=== PATIENT | male | born 1970 | race Caucasian/White ===

== ENCOUNTER 2022-01-27 06:03 | Inpatient (IN) | payer MEDICARE ==
[~2022-01-27] VITALS: Ht 177.8 cm; Wt 180.1 kg
[2022-01-27 06:11] LABS: pH Blood Venous 7.05 (7.34-7.37)
[2022-01-27 06:13] LABS: PCO2 Venous > 105 mmHg (38-42)
[2022-01-27 06:14] LABS: Base Excess Venous 5.9 mmol/L; Bicarbonate Venous 23.2 mmol/L (24.0-30.0); PO2 Venous 48 mmHg (38-42)
[2022-01-27 06:24] LABS: BASOPHILS ABSOLUTE AUTO 0.05 K/mm3 (0.00-0.23); BASOPHILS PERCENT AUTO 0 % (0-2); EOSINOPHILS ABSOLUTE AUTO 0.02 K/mm3 (0.00-0.68); EOSINOPHILS PERCENT AUTO 0 % (0-6); Hemoglobin 18.5 g/dL (13.5-17.5); IMMATURE GRAN ABSOLUTE AUTO 0.13 K/mm3 (0.00-0.10); IMMATURE GRAN PERCENT AUTO 1 % (0-1); LYMPHOCYTES ABSOLUTE AUTO 0.62 K/mm3 (0.84-5.20); LYMPHOCYTES PERCENT AUTO 4 % (21-46); MONOCYTES ABSOLUTE AUTO 0.47 K/mm3 (0.16-1.47); MONOCYTES PERCENT AUTO 3 % (4-13); Mean Corpuscular HGB 28.5 pg (26.0-34.0); Mean Corpuscular HGB Conc 30.7 g/dL (31.5-36.5); Mean Corpuscular Volume 93 fL (80-100); Mean Platelet Volume 9.9 fL (9.1-12.4); NEUTROPHILS ABSOLUTE AUTO 13.34 K/mm3 (1.96-9.15); NEUTROPHILS PERCENT AUTO 91 % (41-73); Platelet Count 385 K/mm3 (150-400); RDW Coefficient Variation 13.9 % (11.7-14.2); RDW Standard Deviation 47.3 fL (35.1-46.3); Red Blood Cell Count 6.48 M/mm3 (4.30-5.90); White Blood Cell Count 14.63 K/mm3 (4.00-11.30)
[2022-01-27 06:27] LABS: Hematocrit 60.3 % (37.0-53.0)
[2022-01-27 06:55] LABS: PCO2 Arterial > 105 mmHg (35-45); PO2 Arterial 358 mmHg (80-100); pH Blood Arterial 7.09 (7.35-7.45)
[2022-01-27 07:00] LABS: Magnesium, Blood 2.5 mg/dL (1.6-2.4)
[2022-01-27 07:12] LABS: Alanine Aminotransfer (ALT/SGP 42 U/L (12-78); Albumin, Blood 2.5 g/dL (3.4-5.0); Albumin/Globulin Ratio 0.4 (0.8-1.8); Alk Phos 143 U/L (50-136); Anion Gap 1 mmol/L (6-16); Aspartate Aminotrans (AST/SGOT 63 U/L (12-37); Bilirubin, Total 0.3 mg/dL (0.1-1.0); Blood Urea Nitrogen 22 mg/dL (8-24); Bun/Creatinine Ratio 21.4 (12.0-20.0); CO2, Blood 35 mmol/L (21-32); Chloride, Blood 98 mmol/L (98-108); Creatinine, Blood 1.03 mg/dL (0.60-1.20); Globulin, Blood 6.7 g/dL (2.2-4.0); Glomerular Filtration Rate >60 (60-); Glucose, Blood 414 mg/dL (70-99); Potassium, Blood 6.8 mmol/L (3.5-5.5); Sodium, Blood 134 mmol/L (136-145); Total Protein, Blood 9.2 g/dL (6.4-8.2)
[2022-01-27 08:22] LABS: Influenza B, PCR NEGATIVE (NEGATIVE); Resp Syncytial Virus, PCR NEGATIVE (NEGATIVE); SARS-Cov-2 (COVID-19) PCR, MMC NEGATIVE (NEGATIVE)
[2022-01-27 08:23] LABS: Influenza A, PCR POSITIVE (NEGATIVE)
[2022-01-27] MEDS ORDERED: OSEL75CA PO (08:50)
[2022-01-27] MEDS ORDERED: AZIT250 PO (08:51)
[2022-01-27] MEDS ORDERED: ALLO100 PO (08:51)
[2022-01-27] MEDS ORDERED: PRED20 PO (08:51)
[2022-01-27 09:49] LABS: International Normalized Ratio 2.43; Prothrombin Time Results 24.1 Sec (9.7-11.5)
[2022-01-27 10:06] LABS: Digoxin (Lanoxin) 0.41 ug/mL (0.80-2.00)
[2022-01-27 10:48] LABS: Source, Urine Foley catheter
[2022-01-27 10:52] LABS: Appearance, Urine Turbid (Clear); Bilirubin, Urine Neg (Neg); Blood, Urine 4+ (Neg); Color, Urine Yellow (P-Yellow); Glucose Qualitative, Urine 4+ (Neg); Ketones, Urine Neg (Neg); Leukocyte Esterase, Urine Neg (Neg); Nitrite, Urine Neg (Neg); Protein, Urine 4+ (Neg); Specific Gravity, Urine 1.025 (1.003-1.022); Urobilinogen, Urine NORM (Normal)
[2022-01-27 11:16] LABS: Amorphous Mod (0-Heavy); Bacteria Mod /hpf; Squamous Epithelial Cells Rare /hpf (Few)
[2022-01-27 11:17] LABS: Renal Epithelial Mod /hpf (0-Rare)
--- NOTE | 2022-01-27 12:05 | NUR ---
ASSUMPTION OF CARE RECEIVED REPORT FROM ED, PATIENT ARRIVED TO UNIT AT 0945 ON GURNEY WITH 5 UPSETTING MACHINE OPERATOR TO BED. PATIENT INTUBATED WITH RT ADJUSTING VENT SETTINGS. OG CLAMPED. SEDATED ON PROPOFOL. LEVOPHED AND AMIO INFUSING. HEART RATE ELEVATED IN AFIB RATE ABOVE 140 UPON ARRIVAL. B/P STABLE WITH MAPS ABOVE 65, WILL BEGIN TITRATING LEVO DOWN. DR. VILLA CONSULTED, PLACED CENTRAL LINE IN RIJ PREVIOUSLY CHARTED. MEDICATIONS ADMINISTERED ORDERED. WILL REVIEW CHART AND TREAT PRESCRIBED.
[2022-01-27 12:58] LABS: Base Excess Venous 1.5 mmol/L; Bicarbonate Venous 22.8 mmol/L (24.0-30.0); pH Blood Venous 7.14 (7.34-7.37)
[2022-01-27] MEDS ORDERED: COLCHICINE0.6 MG PO (13:04)
[2022-01-27] MEDS ORDERED: LANOXIN PO (13:05)
[2022-01-27] MEDS ORDERED: FLUT1DIS8 INH (13:06)
[2022-01-27] MEDS ORDERED: FURO40 PO (13:06)
[2022-01-27] MEDS ORDERED: GLIM2 PO (13:07)
[2022-01-27] MEDS ORDERED: INSULANI SC (13:08)
[2022-01-27] MEDS ORDERED: MELO7.5 PO (13:08)
[2022-01-27] MEDS ORDERED: METO100 PO (13:08)
[2022-01-27] MEDS ORDERED: OLME20 PO (13:09)
[2022-01-27] MEDS ORDERED: OZEMPIC0.25 MG/0. SC (13:10)
[2022-01-27] MEDS ORDERED: PRAV20 PO (13:11)
[2022-01-27] MEDS ORDERED: POTCHL20ER PO (13:11)
[2022-01-27] MEDS ORDERED: PANT40 PO (13:11)
[2022-01-27] MEDS ORDERED: VICTOZA 3-0.6 MG/0.2 SC (13:13)
[2022-01-27] MEDS ORDERED: WARF7.5 PO (13:13)
[2022-01-27 13:19] LABS: Bun/Creatinine Ratio 16.7 (12.0-20.0); Calcium, Blood 8.2 mg/dL (8.5-10.1); Creatinine, Blood 1.8 mg/dL (0.60-1.20); Potassium, Blood 4.7 mmol/L (3.5-5.5)
--- NOTE | 2022-01-27 13:35 | NUR ---
UPDATE REVIEWED ALL LABS WITH DR. VILLA. INFUSING SECOND LITER NS BOLUS PER ELEVATED LA. REPORTED ABG RESULTS WHICH ARE IMPROVED WITH NO CHANGES AT THIS TIME. GLUCOSE REPORTED AND RECEIVED ORDERS FOR AN INSULIN DRIP. WILL INITIATE ONCE RECEIVED FROM PHARMACY.
--- NOTE | 2022-01-27 14:53 | NUR ---
FAMILY SPOKE TO PATIENT'S SISTER JOSSELIN HANKS WHO IS CURRENTLY IN [place]. UPDATE GIVEN REGARDING PATIENT'S CONDITION. RECEIVED CONTACT INFORMATION FOR JOSSELIN HANKS AND BROTHER TYSON. JOSSELIN HANSK SHARED THAT PATIENT LIVES WITH HIS MOTHER WHO IS [employer] WITH BLEACH TESTER. WILL UPDATE FAMILY NEEDED. NOTIFIED DR. VILLA OF FAMILY CONTACTS.
[2022-01-27 15:48] LABS: Glucose, Blood 582 mg/dL (70-99)
--- NOTE | 2022-01-27 18:32 | NUR ---
SHIFT SUMMARY PATIENT ADMITTED PREVIOUSLY CHARTED. REMAINED INTUBATED WITH CURRENT VENT SETTINGS 20/450/8/60% WITH 02 SATS 92%. SEDATED ON PROPOFOL OF 35MCG/KG. PATIENT AWAKENS WITH PHYSICAL STIMULI, CONTINUOUSLY COUGHS AGAINST VENT WHEN AWAKE. LEVOPHED STOPPED, B/P CURRENTLY STABLE WITH MAPS ABOVE 65. AMIO INFUSING WITH HEART RATE 110-120'S. IV FLUID BOLUSES GIVEN ORDERED BY DR. VILLA, MAINTENANCE FLUIDS NOW INFUSING AT 150ML/HR. CENTRAL LINE WAS PLACED IN [facility] BY DR. VILLA, CONFIRMED BY CXR AND VERIFIED TO USE. OG REMAINS CLAMPED. ECHO PERFORMED, LABS COLLECTED AND RESULTED, SPUTUM AND URINE CULTURE PENDING. FAMILY UPDATED PER PATIENT'S STATUS. WILL CONTINUE TO MONITOR AND REPORT TO ONCOMING RN.
[2022-01-27 20:06] LABS: PCO2 Venous 73.4 mmHg (38-42); PO2 Venous 53.4 mmHg (38-42); pH Blood Venous 7.22 (7.34-7.37)
[2022-01-27 20:35] LABS: Bun/Creatinine Ratio 16.1 (12.0-20.0); Calcium, Blood 7.5 mg/dL (8.5-10.1); Creatinine, Blood 2.17 mg/dL (0.60-1.20); Potassium, Blood 4.8 mmol/L (3.5-5.5)
--- NOTE | 2022-01-27 22:42 | NUR ---
SHIFT ASSESSMENT ASSUMED CARE OF PT @ 1900. PT INTUBATED AND SEDATED. PROPOFOL GTT CURRENTLY @ 35MCG/KG. VENT SETTINGS-AC: 20/450/60/8 c O2 SATS >92%. PT ADEQUATELY SEDATED, WILL COUGH VIGOROUSLY WITH MOVEMENT OR STIMULI, SCANT SECRETIONS WITH SUCTIONING. OGT CLAMPED. A-FIB ON THE MONITOR. AMIODARONE GTT INFUSING, HR 120-140'S. MAP > 65, LEVOPHED REMAINS ON SB. TEMP PROBE VILLANUEVA DRAINING CYDNEY URINE c SEDIMENT. PT AFEBRILE. SKIN OVERALL INTACT, SMALL REDDENED AREA FROM DEFIB PADS. BL WRIST RESTRAINTS IN PLACE. WILL CONTINUE TO MONITOR CLOSELY.
[2022-01-28 03:53] LABS: BASOPHILS ABSOLUTE AUTO 0.02 K/mm3 (0.00-0.23); BASOPHILS PERCENT AUTO 0 % (0-2); EOSINOPHILS PERCENT AUTO 0 % (0-6); Hematocrit 44.4 % (37.0-53.0); Hemoglobin 13.6 g/dL (13.5-17.5); IMMATURE GRAN ABSOLUTE AUTO 0.07 K/mm3 (0.00-0.10); IMMATURE GRAN PERCENT AUTO 1 % (0-1); LYMPHOCYTES ABSOLUTE AUTO 0.34 K/mm3 (0.84-5.20); LYMPHOCYTES PERCENT AUTO 2 % (21-46); MONOCYTES ABSOLUTE AUTO 0.37 K/mm3 (0.16-1.47); MONOCYTES PERCENT AUTO 3 % (4-13); Mean Corpuscular HGB 28.5 pg (26.0-34.0); Mean Corpuscular HGB Conc 30.6 g/dL (31.5-36.5); Mean Corpuscular Volume 93 fL (80-100); Mean Platelet Volume 9.3 fL (9.1-12.4); NEUTROPHILS PERCENT AUTO 95 % (41-73); Platelet Count 208 K/mm3 (150-400); RDW Standard Deviation 47.8 fL (35.1-46.3); Red Blood Cell Count 4.77 M/mm3 (4.30-5.90)
[2022-01-28 04:13] LABS: International Normalized Ratio 3.24; Prothrombin Time Results 31.5 Sec (9.7-11.5)
[2022-01-28 04:16] LABS: Albumin, Blood 1.7 g/dL (3.4-5.0); Bilirubin, Total 0.3 mg/dL (0.1-1.0); Bun/Creatinine Ratio 13.7 (12.0-20.0); Calcium, Blood 7.3 mg/dL (8.5-10.1); Creatinine, Blood 2.62 mg/dL (0.60-1.20); Magnesium, Blood 2.4 mg/dL (1.6-2.4); Phosphorus, Blood 3.4 mg/dL (2.5-4.9); Potassium, Blood 4.6 mmol/L (3.5-5.5)
[2022-01-28 04:34] LABS: Albumin/Globulin Ratio 0.4 (0.8-1.8); Globulin, Blood 4.1 g/dL (2.2-4.0)
[2022-01-28 04:36] LABS: Total Protein, Blood 5.8 g/dL (6.4-8.2)
--- NOTE | 2022-01-28 06:29 | NUR ---
SHIFT SUMMARY PT REMAINS INTUBATED AND SEDATED. AT 0500 SBT INITIATED AND PROPOFOL PLACED ON SB. VENT SETTINGS- SPONT-60/8, PT TOLERATING. O2 SATS REMAIN >95%. VSS. PT TRACKING THIS NURSE, TJ, FOLLOWING COMMANDS. PT BECOMING MILDLY ANXIOUS WITH SEDATION OFF, PROPOFOL BACK ON @ 10MCG WHICH SEEMS TO BE HELPING PT REMAIN CALM. KAMRAN SOFT WRIST RESTRAINTS REMAIN IN PLACE TO PROTECT ETT. INSULIN GTT NOW @ 8U/HR. AMIODARONE INFUSION NEAR COMPLETE. A-FIB ON THE MONITOR IN THE 120-130'S. OGT CLAMPED. NO BM. WILL CONTINUE TO MONITOR CLOSELY.
--- NOTE | 2022-01-28 09:30 | NUR ---
UPDATE: VENT SETTINGS CHANGE. PT W/ PROGRESSINGLY LOW TVs, 200s-300s. DR RODRIGUEZ @ BEDSIDE. VENT CHANGED FROM SPONT TO AC/VC 12/450, 8/60%. AMIO INF COMPLETE. HR AFIB 120s-150s. DR RODRIGUEZ AWARE. PLAN TO DC AMIO & TRANSITION TO PO.
--- NOTE | 2022-01-28 10:00 | NUR ---
CAREGIVER FOR PT's MOTHER CALLED. EXPLAINS THAT SHE IS THE LIVE-IN CAREGIVER FOR THE PT's MOTHER BUT HAS ALSO BEEN THE UNOFFICIAL CAREGIVER FOR THE PT. SHE EXPLAINS THE PT RECEIVES DISABILITY SUPPORT D/T A SIGNIFICANT DEVELOPMENTAL DELAY. SHE IS UNSURE OF THE EXACT Dx, BUT THE PT "DOES NOT UNDERSTAND WHAT SUGAR IS" & HAS BEHAVIORAL PROBLEMS, HE IS UNABLE TO REGULATE ANY EMOTIONS & CAN BECOME VERY HARD TO REDIRECT. HE DRINKS A 12pack OR MORE OF SODA EVERY DAY & DOES NOT UNDERSTAND HIS DIABETES OR TAKE HIS MEDS. SHE IS CONCERNED ABOUT HIM COMING HOME BECAUSE HE LAYS ON A MATTRESS THAT IS HEAVILY SOILED W/ FECES & URINE; THOUGH HE IS CONTINENT, HE WILL LAY THERE & SOIL HIMSELF. HIS NEEDS HAVE INCREASED OVER THE PAST FEW YEARS & SHE IS UNABLE TO CARE FOR BOTH THE MOTHER AND THE PT.
--- NOTE | 2022-01-28 18:00 | NUR ---
SHIFT SUMMARY: PT REMAINS INTUBATED & SEDATED. VENT: AC/VC 12/450, 8/55%. PROPOFOL 45mcg/kg/min. PT ABLE TO FOLLOW SIMPLE COMMANDS W/ SEDATION VACATION. HR REMAINS 115-160s, AFIB. PT STARTED ON PO CARDIZEM TODAY & TF STARTED W/ VHP @ 20ml/hr W/ A GOAL OF 70ml/hr. NO S/Sx OF INTOLERANCE T/O THE DAY. 650ml DARK, CLOUDY UOP. REPEAT ECHO DONE TODAY. PLAN TO CONTINUE PT ON VENT UNTIL AT LEAST TOMORROW PER JENNIFER.
--- NOTE | 2022-01-28 20:57 | NUR ---
SHIFT ASSESSMENT ASSUMED CARE OF PT @ 1900. PT INTUBATED AND SEDATED. BL SOFT WRIST RESTRAINTS IN PLACE. PROPOFOL GTT @ 40MCG/KG/MIN. VENT SETTINGS AC:12/450/8/55% c O2 SATS >92%. PT TOLERATING VENTILATOR, OCCASIONALLY COUGHING OVER THE VENT, SCANT SECRETIONS. A-FIB ON THE MONITOR IN THE 120'S, PO CARDIZEM GIVEN PER JAN. BP STABLE. VHP INFUSING VIA OGT, RATE UP TO 40ML/HR, <20ML RESIDUAL PRIOR TO INCREASING RATE. NO BM. TEMP PROBE VILLANUEVA DRAINING CYDNEY URINE c SEDIMENT. WILL CONTINUE TO MONITOR CLOSELY.
[2022-01-29 04:42] LABS: BASOPHILS ABSOLUTE AUTO 0.02 K/mm3 (0.00-0.23); BASOPHILS PERCENT AUTO 0 % (0-2); EOSINOPHILS PERCENT AUTO 0 % (0-6); Hematocrit 43.8 % (37.0-53.0); Hemoglobin 13.4 g/dL (13.5-17.5); IMMATURE GRAN ABSOLUTE AUTO 0.08 K/mm3 (0.00-0.10); IMMATURE GRAN PERCENT AUTO 1 % (0-1); LYMPHOCYTES ABSOLUTE AUTO 0.31 K/mm3 (0.84-5.20); LYMPHOCYTES PERCENT AUTO 2 % (21-46); MONOCYTES PERCENT AUTO 2 % (4-13); Mean Corpuscular HGB 28.6 pg (26.0-34.0); Mean Corpuscular HGB Conc 30.6 g/dL (31.5-36.5); Mean Corpuscular Volume 94 fL (80-100); Mean Platelet Volume 9.8 fL (9.1-12.4); NEUTROPHILS ABSOLUTE AUTO 15.21 K/mm3 (1.96-9.15); NEUTROPHILS PERCENT AUTO 96 % (41-73); Platelet Count 187 K/mm3 (150-400); RDW Coefficient Variation 14.3 % (11.7-14.2); RDW Standard Deviation 49.1 fL (35.1-46.3); Red Blood Cell Count 4.68 M/mm3 (4.30-5.90); White Blood Cell Count 15.92 K/mm3 (4.00-11.30)
[2022-01-29 04:59] LABS: PCO2 Arterial 58.4 mmHg (35-45); pH Blood Arterial 7.27 (7.35-7.45)
[2022-01-29 05:00] LABS: PO2 Arterial 74.2 mmHg (80-100)
[2022-01-29 05:01] LABS: International Normalized Ratio 2.64
[2022-01-29 05:10] LABS: Bun/Creatinine Ratio 16.5 (12.0-20.0); Calcium, Blood 7.8 mg/dL (8.5-10.1); Creatinine, Blood 3.15 mg/dL (0.60-1.20); Magnesium, Blood 2.7 mg/dL (1.6-2.4); Phosphorus, Blood 3.9 mg/dL (2.5-4.9); Potassium, Blood 5.1 mmol/L (3.5-5.5)
--- NOTE | 2022-01-29 06:14 | NUR ---
SHIFT SUMMARY PT REMAINS INTUBATED AND SEDATED. ABLE TO FOLLOW COMMANDS DURING SEDATION VACATION. VENT SETTINGS NOW AC: 12/450/8/50% c O2 SATS >92%. PROPOFOL GTT @ 35MCG/KG/MIN. SMALL AMNT OF LIGHT YELLOW SECRETIONS SUCTIONED AFTER HARD TURNS. PT REMAINS IN A-FIB, RATE SEEMS TO BE RESPONDING TO CARDIZEM, HR IN THE 100-120'S. BP STABLE. TF INCREASED TO 60ML/HR c <20ML RESIDUALS, GOAL OF 70ML/HR. CBG CONTINUES TO INCREASE, HOSPITALIST NOTIFED, ONE TIME DOSE OF 20U LANTUS GIVEN PRIOR TO MIDNIGHT c NEW ORDERS FOR 20U LANTUS ONCE DAILY. VILLANUEVA CATH DRAINING CYDNEY URINE. NO BM THIS SHIFT. FULL BED BATH GIVEN. WILL CONTINUE TO MONITOR.
--- NOTE | 2022-01-29 08:00 | NUR ---
Assumed care. Pt responds to touch and verbal stimuli. Try's to open his eyes but unable to. Able to evaporative cooler installer but very weak. Follows Commands. Good gag, cough and swallow. Afib on the monitor. Tachycardic in low 100's. Bp WNl, occational will be elevated to 150's. On propofol at 40mcq. Lung sounds are diminished clear upper lobes. On vent with settings AC 12/450/8/50%. CO2 in the 30-40. Abd round soft, BT hypoactive. Panus is red from skin fold up to belly button, redness in other skin folds, armpits and groin, powder was applied, cath care done. no breakdown on the bottom. Cath is patent and draining, dark yellow to dulce color with sediment. Blood sugar above 400. Will notify Dr. Santiago for change in orders and coverage. Peripherial iv's flushed. central intact CDI. will continue to monitor and treat.
--- NOTE | 2022-01-29 08:23 | NUR ---
Dr. Santiago notified of blood sugar >400. New orders received for increase in dose to low sliding scale and long acting.
--- NOTE | 2022-01-29 09:35 | NUR ---
Dr. Castillo and Dr. Santiago here to see the patient. New orders received. Dr. Castillo decreased vent peep to 5.
--- NOTE | 2022-01-29 12:00 | NUR ---
Bed changed to Bariatric. Transfer went well, patient tolerated. Suction and oral care provided.
[2022-01-29 17:54] LABS: Glucose, Blood 592 mg/dL (70-99)
--- NOTE | 2022-01-29 18:24 | NUR ---
SHIFT SUMMARY: Pt responds to physical and verbal stimuli. Will follow commands but continues to be on propofol at 40mcq/hr. Unloader Operator are weak. Good cough, gag, and swallow. LS diminished. Vent settings: 12/450/5/50%. CO2 average 35-40. Sats average low 90's. Suction scant to none. Oral suction clear minimal. Afib on monitor, rate low 100's. BP has been slowly climbing over the last several hours. Dr. Castillo notified of I/O's with a + 923 so far today, VS were given. New order for Lasix 40mg x1 now. Edema noted in BUE and BLE. TF now at goal rate of 70ml/hr, residuals have been 60, 30, 30. BT- Hypoactive. Blood Sugars continued to climb last was 592, Insulin drip started at 5 units/hr. Bicarb was started per Dr. Castillo this am. Piedra remains patent. Skin redness in skin folds and lower abdomin. Will report to oncoming shift.
[2022-01-29 19:13] LABS: Glucose, Blood 600 mg/dL (70-99)
[2022-01-29 19:14] LABS: Glucose, Blood 603 mg/dL (70-99)
[2022-01-29 20:43] LABS: Glucose, Blood 628 mg/dL (70-99)
[2022-01-29 22:04] LABS: Glucose, Blood 592 mg/dL (70-99)
--- NOTE | 2022-01-29 22:18 | NUR ---
ASSUMED CARE: AT START OF SHIFT, PT SEDATED ON PROPOFOL @ 40, RASS -3 TO -4. RESPONDS TO PAIN ONLY. + GAG, + COUGH. PERRLA 3MM. IN BILATERAL WRIST RESTRAINTS FOR TUBE SAFETY. IN AFIB, RATES 80S-100S. BP WNL. PULSES WNL. TRACE EDEMA IN EXTREMITIES. AFEBRILE. PT HAS 8.0 ETT @ 25 @ LIP. AC/VC MODE, 50% FIO2, PEEP 5, RR 12, VT 450. L-SIDE LUNGS CLEAR W/ FINE CRACKLES IN BASES, R-SIDE LUNGS COARSE, DIM, FINE CRACKLES IN BASES. SPO2 >92. TUBE FEED @ GOAL VIA OG TUBE @ 70ML/H W/ 30ML/Q4H FREE WATER FLUSH. HYPOACTIVE BOWEL SOUNDS. OBESE ABDOMEN. CBGS CRITICALLY HIGH- PT BACK ON INSULIN GTT. VILLANUEVA IN PLACE DRAINING CLEAR YELLOW URINE. REDNESS & EXCORIATION TO SKIN FOLDS- POWDER & MOISTURE-WICKING LINEN IN PLACE. GTTS: PROPOFOL @ 40, INSULIN @ 7, BICARB @ 100. PT'S MOTHER'S CAREGIVER CALLED FOR UPDATE- SHE WILL UPDATE PT'S FAMILY.
[2022-01-29 22:39] LABS: Glucose, Blood 596 mg/dL (70-99)
[2022-01-29 23:41] LABS: Glucose, Blood 573 mg/dL (70-99)
[2022-01-30 00:35] LABS: Glucose, Blood 536 mg/dL (70-99)
[2022-01-30 04:49] LABS: BASOPHILS ABSOLUTE AUTO 0.01 K/mm3 (0.00-0.23); BASOPHILS PERCENT AUTO 0 % (0-2); EOSINOPHILS PERCENT AUTO 0 % (0-6); Hematocrit 43.2 % (37.0-53.0); Hemoglobin 13.5 g/dL (13.5-17.5); IMMATURE GRAN ABSOLUTE AUTO 0.05 K/mm3 (0.00-0.10); IMMATURE GRAN PERCENT AUTO 0 % (0-1); LYMPHOCYTES ABSOLUTE AUTO 0.27 K/mm3 (0.84-5.20); LYMPHOCYTES PERCENT AUTO 2 % (21-46); MONOCYTES ABSOLUTE AUTO 0.32 K/mm3 (0.16-1.47); MONOCYTES PERCENT AUTO 3 % (4-13); Mean Corpuscular HGB 28.7 pg (26.0-34.0); Mean Corpuscular HGB Conc 31.3 g/dL (31.5-36.5); Mean Corpuscular Volume 92 fL (80-100); Mean Platelet Volume 9.6 fL (9.1-12.4); NEUTROPHILS ABSOLUTE AUTO 10.53 K/mm3 (1.96-9.15); NEUTROPHILS PERCENT AUTO 94 % (41-73); Platelet Count 172 K/mm3 (150-400); RDW Coefficient Variation 14.1 % (11.7-14.2); RDW Standard Deviation 48.3 fL (35.1-46.3); White Blood Cell Count 11.18 K/mm3 (4.00-11.30)
[2022-01-30 05:03] LABS: International Normalized Ratio 1.82; Prothrombin Time Results 18.4 Sec (9.7-11.5)
[2022-01-30 05:13] LABS: Albumin/Globulin Ratio 0.5 (0.8-1.8); Bilirubin, Total 0.2 mg/dL (0.1-1.0); Bun/Creatinine Ratio 20.7 (12.0-20.0); Calcium, Blood 7.8 mg/dL (8.5-10.1); Creatinine, Blood 3.09 mg/dL (0.60-1.20); Globulin, Blood 4.2 g/dL (2.2-4.0); Phosphorus, Blood 4.5 mg/dL (2.5-4.9); Potassium, Blood 4.6 mmol/L (3.5-5.5); Total Protein, Blood 6.2 g/dL (6.4-8.2)
[2022-01-30 05:35] LABS: PCO2 Arterial 80.4 mmHg (35-45); PO2 Arterial 69.2 mmHg (80-100); pH Blood Arterial 7.23 (7.35-7.45)
--- NOTE | 2022-01-30 06:03 | NUR ---
SHIFT SUMMARY: CRITICAL CBGS ALL NIGHT- INSULIN GTT UP TO 17U/HR, LAST CBG >300. SAT THIS AM- PROPOFOL TURNED DOWN FROM 40 TO 10. VENTILATOR MODE CHANGED TO SPONTANEOUS PEEP 5, 50%. PT AWAKENED, FOLLOWED SOME COMMANDS, BUT QUICKLY BECAME TACHYCARDIC TO THE 140S, HYPERTENSIVE W/ SBP >180, TACHYPNEIC W/ RR IN THE 30S, AND SPO2 FELL TO MID-HIGH 80S. PT WAS CONSTANTLY GAGGING ON TUBE & COUGHING TO THE POINT HIS FACE BECAME DEEP RED. PROPOFOL INCREASED TO 20 W/ SOME RELIEF OF COUGHING. ABG DRAWN BY RT, CO2 >80, PH <7.3. RT SPOKE W/ MD & RECEIVED ORDERS TO INCREASE PROPFOL BACK TO 40 & RETURN PT TO PREVIOUS MODE & SETTINGS. PT HAD 1 LIQUID BM THIS AM W/ COUGHING FIT. GOOD UOP THROUGHOUT SHIFT. PT RESEDATED & IS NOW RESTING COMFORTABLY W/ GOOD VENTILATOR COMPLIANCE.
--- NOTE | 2022-01-30 09:00 | NUR ---
Assumed Care. Minimal response to verbal Stimuli this am, No attempt to open eyes or galley hand hands. Cough, swallow and gag intact. Continues on AC vent settings at 12/450/5/50%. ETT was out slightly RT repositioned to normal position and retaped. Sats 91-92% with CO2 in the 40's. LS diminished t/o. very light velasquez secreations noted with suction. Oral care provided. Afib on monitor with rate in the 80's. Distant heart sounds. Generalized edema t/o. BM this am per noc shift. BT hypoactive, TF at goal, residuals 30cc. OG tube flushed. Piedra patent with Dark yellow urine. Skin redness to abdomin is improving and in the skin folds. CL- infusing Profol at 40mcq, Bicarb-100ml, and insulin at 17 units. Blood sugar 292 and 326 this am, insulin was increased to 19. Repositioned. Will continue to monitor and provide care.
--- NOTE | 2022-01-30 09:52 | NUR ---
Dr. Villarreal in room with patient. Update given. Informed of blood pressures and that the patient takes Metoprolol at home. She will order.
--- NOTE | 2022-01-30 10:53 | NUR ---
Dr. Castillo in to see the patient. Update given. Decreased Propofol to 20mcq in start of Vacation Sedation Trial.
--- NOTE | 2022-01-30 12:00 | NUR ---
Propofol placed on hold for neuro assessment at 1133. RT was able to collect sputum, light velasquez color, sent to lab. Pt started to open his eyes and respond some to staff with in [address] Castillo switched him to spontanous on the vent with pressure support. Repositioned, while doing so he became more alert and able to answer questions, wiggle feet, film booker and move all extremitites. Swallow and cough intact. Dr. Castillo informed, will leave on pressure support for now.
--- NOTE | 2022-01-30 14:14 | NUR ---
Spoke to Dr. Castillo informed of BP increasing into the 180's. Change to the metoprofol noted. Patient is still off the propofol, he is not tracking with the eyes, will open his eyes to his name. Does not wiggle toes or follow commands. Dr. Castillo was able to get a head nod but was unaware that the patient has a mental delay per caregiver of a [address] Castillo on information caregiver provided.
--- NOTE | 2022-01-30 17:45 | NUR ---
Called Dr. Castillo regarding plans for tonight. Informed him of how alert and how well he is able to communicate needs. Order to restart Propofol and to place back on AC vent controls tonight. Will inform RT and start Propofol.
--- NOTE | 2022-01-30 17:53 | NUR ---
Propofol restarted at 20mcq per hour. RT informed and in room. Patient switched back to AC control on the Vent.
--- NOTE | 2022-01-30 18:39 | NUR ---
SHIFT SUMMARY: Pt alert and oriented today when on sedation vacation. Was able to answer yes/no questions with thumbs up or down. Tracked with eyes, tried to talk, was very scared but did understand what was going on. Moved all extremitites and even was watching TV. LS diminished, was on AC till noon then on Pressure support of 10 with peep of 5. Sats maintained in the low 90's. Occationally he would have coughing spasms or when positioning him his tidal volume would increase then returned to normal. Now back on AC with settings 12/450/5/50%. Propofol was re-started at 20mcq now at 35mcq. Afib on the monitor, rate continues at 90-110. Dr. Hensley informed of increase in blood pressures. Metoprolol was started which improved BP for short period while off the propofol but now back up in the 170-180's. Next dose at midnight. Edema has improved but mostly in bilateral hands. Several extra large loose stools today, rectal tube was placed. Brown liquid. BT active. Cath patent with yellow sediment with decrease output of only 700 this shift. TF continues at goal rate. Heparin started at 18units/kg/hr. Last blood sugar 180's, insulin at 17units/hr. Bicarb continues at 100ml/hr. Removed peripheral iv lines in bilateral hands. Skin redness improving. Small red area noted on bottom, blanchable, covered with foam dressing. Dr. Hensley has remained informed of changes today. Will report to oncoming shift.
--- NOTE | 2022-01-30 21:18 | NUR ---
ASSUMED CARE: AT START OF SHIFT, PT IS SEDATED ON PROP @ 35, BUT IS FREQUENTLY COUGHING ON ETT & AGITATED IN BED- INCREASED PROP TO 40. WITHDRAWS FROM PAIN, DOES NOT FOLLOW COMMANDS. PERRLA 3MM. VENT ON AC/VC, PEEP 5, FIO2 55%, VT 450, RR 12. PT OVERBREATHING VENT. LUNGS DIM, COARSE. SPO2 88-90%. PT HYPERTENSIVE, SBP 170S. AFIB W/ HR 90-110. STRONG PULSES THROUGHOUT. AFEBRILE. TF @ GOAL RATE 70ML/HR W/ 30ML Q4H H2O FLUSH. RECTAL TUBE IN PLACE, BUT LEAKING- REPLACED. LARGE INCONTINENT LIQUID STOOL. HYPERACTIVE BOWEL SOUNDS. VILLANUEVA IN PLACE- GOOD UOP, CLEAR YELLOW URINE. BILAT WRIST RESTRAINTS IN PLACE FOR SAFETY. REDNESS UNDER SKIN FOLDS- BABY POWDER APPLIED. CBG STABLE 170S-190S. GTTS: INSULIN @ 17U/HR PROPOFOL @ 35- INCR TO 40 HEPARIN @ 18U/HR BICARB @ 100ML/HR LINES: CVC RIJ, PIV LAC
[2022-01-31 04:56] LABS: PCO2 Arterial 76.2 mmHg (35-45); PO2 Arterial 67.6 mmHg (80-100); pH Blood Arterial 7.34 (7.35-7.45)
[2022-01-31 05:07] LABS: BASOPHILS ABSOLUTE AUTO 0.01 K/mm3 (0.00-0.23); BASOPHILS PERCENT AUTO 0 % (0-2); EOSINOPHILS PERCENT AUTO 0 % (0-6); Hematocrit 42.4 % (37.0-53.0); Hemoglobin 13.4 g/dL (13.5-17.5); IMMATURE GRAN ABSOLUTE AUTO 0.12 K/mm3 (0.00-0.10); IMMATURE GRAN PERCENT AUTO 1 % (0-1); LYMPHOCYTES PERCENT AUTO 3 % (21-46); MONOCYTES ABSOLUTE AUTO 0.27 K/mm3 (0.16-1.47); MONOCYTES PERCENT AUTO 2 % (4-13); Mean Corpuscular HGB 28.8 pg (26.0-34.0); Mean Corpuscular HGB Conc 31.6 g/dL (31.5-36.5); Mean Corpuscular Volume 91 fL (80-100); Mean Platelet Volume 9.9 fL (9.1-12.4); NEUTROPHILS ABSOLUTE AUTO 11.85 K/mm3 (1.96-9.15); NEUTROPHILS PERCENT AUTO 94 % (41-73); Platelet Count 147 K/mm3 (150-400); RDW Coefficient Variation 14.1 % (11.7-14.2); RDW Standard Deviation 47.5 fL (35.1-46.3); Red Blood Cell Count 4.65 M/mm3 (4.30-5.90); White Blood Cell Count 12.65 K/mm3 (4.00-11.30)
[2022-01-31 05:29] LABS: Bun/Creatinine Ratio 25.9 (12.0-20.0); Calcium, Blood 7.7 mg/dL (8.5-10.1); Creatinine, Blood 2.43 mg/dL (0.60-1.20); Magnesium, Blood 2.7 mg/dL (1.6-2.4); Phosphorus, Blood 3.7 mg/dL (2.5-4.9); Potassium, Blood 4.2 mmol/L (3.5-5.5)
--- NOTE | 2022-01-31 05:55 | NUR ---
SHIFT SUMMARY: PROPOFOL GTT INCREASED TO 45 D/T PT RESTLESSNESS, NONCOMPLIANCE W/ VENT, AND DESATURATIONS. VENT SETTINGS: AC/VC, PEEP 5, FIO2 60%, VT 450, RR 12. SPO2 89-91. HYPERTENSIVE OVERNIGHT, SBPS <180. AFIB 70S-90S. AFEBRILE INSULIN GTT INCREASED TO 22UNITS D/T CBGS INCREASING TO 200S. RECTAL TUBE IN PLACE D/T LIQUID STOOL. TF @ GOAL @ 70ML/HR W/ 30ML Q4H H2O FLUSH VIA OG. VILLANUEVA DRAINING WELL- LARGE UOP OVERNIGHT- >200/HR. GTTS: PROPOFOL @ 45 HEPARIN @ 21 INSULIN @ 22 BICARB @ 100
[2022-01-31 12:25] LABS: PCO2 Arterial 68.3 mmHg (35-45); pH Blood Arterial 7.38 (7.35-7.45)
--- NOTE | 2022-01-31 14:33 | NUR ---
PT EXTUBATED AT 1250 AND TRANSITIONED TO BIPAP 16/8 FIO2 50%. TUBE FEEDS DISCONTINUED TUBE FEEDS SHORTLY BEFORE EXTUBATION. OG TUBE D/C'D WHEN PT EXTUBATED.
--- NOTE | 2022-01-31 18:26 | NUR ---
SHIFT SUMMARY PT ALERT, ORIENTED TO PERSON, YEAR AND SURROUNDINGS, FOLLOWS COMMANDS. PT WAS EXTUBATED TODAY AND IMMEDIATELY STARTED ON BIPAP. PT HAS TOLERATED TRANSITION WELL WITH NO DROPS IN SPO2. BIPAP SETTINS 16/8 FIO2 45%. THIS MORNING PTS CBG REMAINED ELEVATED WITH INSULIN GTT AT 26UNITS/HR. DISCUSSED INSULIN GTT AND OTHER MEDICATIONS WITH DEXTROSE WITH PROVIDER. PT WAS STARTED ON LONG ACTING INSULIN AND SOME OF THE GTTS WERE ABLE TO BE TURNED OFF. PT ALSO STOPPED TUBE FEEDS WHEN EXTUBATED. PT WAS ABLE TO BE TITRATED DOWN AND IS NOW AT 4UNITS/HR. PT HAS TOLERATED SIPS OF WATER AND MEDS 1 AT A TIME. VILLANUEVA REMAINS IN PLACE TO GRAVITY WITH CLOSE TO 2L OUTPUT TODAY. RECTAL TUBE REMAINS IN PLACE TO GRAVITY WITH SMALL SMALL AMOUNT OF LIQUID BROWN. PT REMAINS ON HEPARIN GTT WITH PHARMACY DOSING, SEE EMAR. PT SLIGHTLY MORE HYPERTENSIVE TODAY AFTER EXTUBATION. OTHER VITALS HAVE REMAINED STABLE. REMAINS IN AFIB ON THE MONITOR WITH RATES 80'S-90'S.
[2022-02-01 03:59] LABS: BASOPHILS ABSOLUTE AUTO 0.04 K/mm3 (0.00-0.23); BASOPHILS PERCENT AUTO 0 % (0-2); EOSINOPHILS PERCENT AUTO 0 % (0-6); Hematocrit 44.9 % (37.0-53.0); Hemoglobin 13.9 g/dL (13.5-17.5); IMMATURE GRAN ABSOLUTE AUTO 0.18 K/mm3 (0.00-0.10); IMMATURE GRAN PERCENT AUTO 1 % (0-1); LYMPHOCYTES ABSOLUTE AUTO 0.97 K/mm3 (0.84-5.20); LYMPHOCYTES PERCENT AUTO 6 % (21-46); MONOCYTES ABSOLUTE AUTO 0.43 K/mm3 (0.16-1.47); MONOCYTES PERCENT AUTO 3 % (4-13); Mean Corpuscular HGB 27.9 pg (26.0-34.0); Mean Corpuscular Volume 90 fL (80-100); Mean Platelet Volume 9.9 fL (9.1-12.4); NEUTROPHILS ABSOLUTE AUTO 13.96 K/mm3 (1.96-9.15); NEUTROPHILS PERCENT AUTO 90 % (41-73); Platelet Count 169 K/mm3 (150-400); RDW Coefficient Variation 13.9 % (11.7-14.2); RDW Standard Deviation 46.3 fL (35.1-46.3); Red Blood Cell Count 4.99 M/mm3 (4.30-5.90); White Blood Cell Count 15.58 K/mm3 (4.00-11.30)
[2022-02-01 04:18] LABS: Bun/Creatinine Ratio 32.8 (12.0-20.0); Calcium, Blood 7.9 mg/dL (8.5-10.1); Creatinine, Blood 1.98 mg/dL (0.60-1.20); Magnesium, Blood 2.5 mg/dL (1.6-2.4); Phosphorus, Blood 3.6 mg/dL (2.5-4.9); Potassium, Blood 4.2 mmol/L (3.5-5.5)
--- NOTE | 2022-02-01 06:19 | NUR ---
SHIFT SUMMARY: PT RESPONDS TO VERBAL STIMULI, UNABLE TO ANSWER QUESTIONS WITH FULL SENTENCES, ONLY ABLE TO ANSWER WITH YES AND NO. ABLE TO SWALLOW OK. CAN MOVE ALL EXTREMITIES EQUALLY BUT WEAK. PT VERY ANXIOUS, TRIED TO PULL BIPAP MASK OFF SEVERAL TIMES. NOW IN SOFT BILAT SOFT WRISTS RETRAINTS FOR SAFETY. REMAINS ON BIPAP, WITH SETTINGS 12/8, FIO2 45%. LUNG SOUNDS HAVE EXP AND INS WHEEZING, DOES SOUND COARSE BILATERALLY. ABLE TO COUGH BUT NO SECRETIONS. HYPERTENSIVE OVERNIGHT, NOTIFIED MD AND WAS ABLE TO GET PRN LABETOLOL AND INCREASED DOSAGE ON HTN MEDICATIONS. AFEBRILE, HR 70-100, AFIB WITH FREQ PVCs HAD MULTIPLE BMs OVERNIGHT, INCONTINENT. RECTAL TUBE OUT. INFUSIONS: HEPARIN AND INSULIN
--- NOTE | 2022-02-01 09:34 | NUR ---
ASSUMED CARE OF PT, REPORT RCV'D FROM MIGUEL WHYTE. PT ALERT TO SELF AND PLACE , FOLLOWS COMMANDS, ANSWERS YES/NO TO QUESTIONS AND IS ABLE TO EXPRESS SOME NEEDS. ANXIOUS AND FIDGETING BUT REDIRECTABLE. PT TAKEN OUT OF WRIST RESTRAINTS AND PLACED ON AIRVO 60L, 50% WITH SATS>90%. INSULIN GTT @ 3 UNITS/HR. HEPARIN GTT AT 23 UNITS/HR. SEE FULL SHIFT ASSESSMENT.
--- NOTE | 2022-02-01 18:14 | NUR ---
SHIFT SUMMARY PT REMAINS ALERT AND ORIENTED TO SELF AND PLACE, FOLLOWS COMMANDS AND IS COOPERATIVE WITH CARE. PT UP WITH PT USING FFW AND ABLE TO STAND WITH ASSISTANCE TO PIVOT BACK TO BED, REQUIRES ASSISTANCE WITH MEALS, ABLE TO HELP REPOSITION AND SCOOT UP IN BED. BIPAP 16/8, 50% OR AIRVO 60L 50% TO MAINTAIN SATS>90%. INSULIN GTT INFUSING @ 8 UNITS/HR. HEPARIN GTT @ 21 UNITS. SPOKE WITH PTS SISTER AND CROSSCUTTER, PLAN TO DISCHARGE TO SNF, PATIENT AGREEABLE TO PLAN. WILL REPORT TO ONCOMING NURSE.
--- NOTE | 2022-02-01 21:04 | NUR ---
ASSUMPTION OF CARE BEDSIDE REPORT RECEIVED FROM MIGUEL CRISOSTOMO. INSULIN AND HEPARIN RATES CONFIRMED WITH KRANTHI. PT ALERT AND ORIENTED, FOLLOWING COMMANDS. LAYING ON R SIDE, CONSTANTLY MOVING IN BED. DENIES COMPLAINTS AT THIS TIME. TOLERATING AIRVO AT THIS TIME, 60L @ 65% c O2 SATS >90%. INSULIN GTT INITIALLY @ 8U/HR c REPEAT CBG OF 140 @ 140. REPEAT CBG @ 2017 IS 128, INSULIN GTT NOW @ 1U/HR. WILL REASSESS WITHIN THE HOUR. TEMP PROBE VILLANUEVA AND RECTAL TUBE IN PLACE. WILL CONTINUE TO MONITOR.
--- NOTE | 2022-02-02 01:19 | NUR ---
UPDATE PT MOANING, NOT TOLERATING BIPAP. APPLIED FULL FACE MASK, PT TOLERATED FOR A SHORT TIME BUT STARTED YELLING OUT "I CAN'T SEE". CHANGED BACK TO NORMAL BIPAP MASK, ASSISTED PT TO LEFT SIDE, TOLERATING AT THIS TIME BUT CONTINUES TO CALL OUT.
--- NOTE | 2022-02-02 03:42 | NUR ---
UPDATE PT CRYING OUT FREQUENTLY, CONTINOUSLY TOSSING IN BED. ASSISTING PT TO POSITION OF COMFORT, VERY DIFFICULT TO OBTAIN. PT STATING "I CAN'T SLEEP" REPEATEDLY. WILL SPEAK WITH NURSE OR PHYSICIAN THIS MORNING ABOUT POSSIBLE MEDICATIONS FOR SLEEP.
[2022-02-02 04:34] LABS: Hematocrit 44.2 % (37.0-53.0); Hemoglobin 13.5 g/dL (13.5-17.5); Mean Corpuscular HGB 28.1 pg (26.0-34.0); Mean Corpuscular HGB Conc 30.5 g/dL (31.5-36.5); Mean Corpuscular Volume 92 fL (80-100); Mean Platelet Volume 10.2 fL (9.1-12.4); Platelet Count 161 K/mm3 (150-400); RDW Coefficient Variation 13.9 % (11.7-14.2); RDW Standard Deviation 47.2 fL (35.1-46.3); White Blood Cell Count 12.18 K/mm3 (4.00-11.30)
[2022-02-02 04:55] LABS: Bun/Creatinine Ratio 33.3 (12.0-20.0); Calcium, Blood 8.1 mg/dL (8.5-10.1); Creatinine, Blood 1.83 mg/dL (0.60-1.20); Magnesium, Blood 2.4 mg/dL (1.6-2.4); Phosphorus, Blood 5.1 mg/dL (2.5-4.9); Potassium, Blood 4.6 mmol/L (3.5-5.5)
[2022-02-02 05:11] LABS: BAND PERCENT MAN 1 % (0-8); BASOPHILS PERCENT MAN 0 % (0-2); EOSINOPHILS PERCENT MAN 0 % (0-6); LYMPHOCYTES ABSOLUTE MAN 0.48 K/mm3 (0.84-5.20); LYMPHOCYTES PERCENT MAN 4 % (21-46); MONOCYTES ABSOLUTE MAN 0.12 K/mm3 (0.16-1.47); MONOCYTES PERCENT MAN 1 % (4-13); NEUTROPHILS ABSOLUTE MAN 11.57 K/mm3 (1.96-9.15); SEG NEUTROPHILS PERCENT MAN 94 % (41-73); TOTAL CELLS COUNTED 100
--- NOTE | 2022-02-02 06:36 | NUR ---
SHIFT SUMMARY PT REMAINS ALERT AND ORIENTED TO PERSON AND PLACE. BIPAP ON T/O THE NIGHT BUT REQUIRED FREQUENT REMINDING TO LEAVE MASK ALONE. PT EXTREMELY RESTLESS. HEPARIN GTT TITRATED PER PHARMACY. INSULIN GTT CONTINUES, TITRATED T/O NIGHT FOR A GOAL BG OF 150, UNABLE TO CONSISTENTLY STAY BELOW 2U/HR, CURRENTLY @ 3U/HR. PT C/O OF PAIN FROM RECTAL TUBE, RE-INSERTED DURING NIGHT TO CONFIRM PLACEMENT, PT CONTIUED TO C/O OF PAIN AND PULLED RECTAL TUBE. SCANT AMNT OF LOOSE BROWN STOOL AFTER REMOVAL OF RECTAL TUBE. TEMP PROBE VILLANUEVA PATENT, DRAINING YELLOW URINE, AFEBRILE. NO OTHER ACUTE CHANGES.
--- NOTE | 2022-02-02 09:00 | NUR ---
Assumed Care. AOx3, able to make needs known. Mentally delayed but communicates well, slow to repsond. Wants to get up for breakfast. Lung sounds are diminished t/o. On CPAP with settings 16/8/65%. RT switched to airvo with settings 45L/40%, did have to increase to 45% due to sats 87-89%. Cough is occational, no secretions at this time. Afib on the monitor average 90's. BP hypertensive with movement, relaxed wnl. Denies any chest pain or discomfort. Generalized trace edema and +1 in the hands. Rectal tube removed last night, no stool noted as of yet. Piedra patent with yellow urine. Skin with redness in the folds. Large bruises to the right upper arm, with frim hematoma under skin and on the left lower abdomin. Will monitor. Up to the chair with ceiling lift. Dr. Villarreal and Rene both in to see the patient. Insulin was stopped and long acting started, first dose this am. Fluids Dc's, first dose of lasix given. Order for xerelto to start this evening. Heparin still infusing. Last blood sugar 155. Ate 100% of meal. Will continue to monitor, call light in soto
--- NOTE | 2022-02-02 13:00 | NUR ---
Came back from lunch, Reinaldo was aggitated stating he was hurting in his knees then his back. Dr. López in [place] and gave order for tylenol. YISSEL in room trying to calm the patient and apply ice to knees. He was very fixed on the idea of getting up to the chair, causing him to go into a panic mood, pulling himself to the right side, causing sats to decrease. RT called to place patient back on CPAP, that is when he noticed the tube had been disconnected from the machine from the patient pulling on against it. CPAP was placed and eventually sats returned to normal. he did turn dusky and sats reached as low as 70%. Currently on CPAP but is still fixed on getting back into the chair.
--- NOTE | 2022-02-02 14:47 | NUR ---
CRITICAL PTT 116.3. HEPARIN ON HOLD PER PHARMACY ORDERS.
--- NOTE | 2022-02-02 14:51 | NUR ---
PT currently in the room. CHEM BG to 306. Blood sugars are hanging around the 300's. He is able to move self in the bed, scoot self up with some coaching. He does get anxious whcih tends to rais his blood pressure and hr. Will continue to monitor.
--- NOTE | 2022-02-02 16:12 | NUR ---
Dr. López stopped by for final check on the patient before transfer to PCU. New order for change in long acting insulin. Increased to 25 units BID. Ok to give xeralto now before transfer, this was given. Last glucose was 317, short acting given. RT called for transfer. Dr. Villarreal informed of transfer and that Dr. López signed off on the patient.
--- NOTE | 2022-02-02 17:14 | NUR ---
PT ARRIVED TO PCU RM18 ON BARIATRIC BED. PT IS A&OX4, DEVELOPMENTALLY DELAYED, PLEASANT AND COOPERATIVE. ABLE TO USE CALL LIGHT APPROPRIATELY. CONTINUOUS SP02 AND RADIATION ONCOLOGY THERAPIST PLACED. PT ORIENTED TO ROOM AND UNIT ROUTINES. PT ON BIPAP, SP02 93%. HR 97, AFIB. LUNG SOUNDS DIMINISHED. PT REPOSITIONED IN BED WITH OVERHEAD LIFT AND 3 STAFF. NO FURHTER NEEDS IDENTIFIED ON ARRIVAL TO ROOM, CALL LIGHT IN REACH.
[2022-02-03 05:10] LABS: BASOPHILS ABSOLUTE AUTO 0.04 K/mm3 (0.00-0.23); BASOPHILS PERCENT AUTO 0 % (0-2); EOSINOPHILS PERCENT AUTO 0 % (0-6); Hematocrit 42.8 % (37.0-53.0); Hemoglobin 13.5 g/dL (13.5-17.5); Mean Corpuscular HGB 28.7 pg (26.0-34.0); Mean Corpuscular HGB Conc 31.5 g/dL (31.5-36.5); Mean Corpuscular Volume 91 fL (80-100); Mean Platelet Volume 9.9 fL (9.1-12.4); Platelet Count 179 K/mm3 (150-400); RDW Coefficient Variation 13.8 % (11.7-14.2); RDW Standard Deviation 46.5 fL (35.1-46.3); Red Blood Cell Count 4.71 M/mm3 (4.30-5.90); White Blood Cell Count 11.24 K/mm3 (4.00-11.30)
[2022-02-03 05:13] LABS: IMMATURE GRAN PERCENT AUTO 2 % (0-1); LYMPHOCYTES ABSOLUTE AUTO 1.92 K/mm3 (0.84-5.20); LYMPHOCYTES PERCENT AUTO 17 % (21-46); MONOCYTES ABSOLUTE AUTO 0.69 K/mm3 (0.16-1.47); MONOCYTES PERCENT AUTO 6 % (4-13); NEUTROPHILS ABSOLUTE AUTO 8.39 K/mm3 (1.96-9.15); NEUTROPHILS PERCENT AUTO 75 % (41-73)
[2022-02-03 05:41] LABS: Bun/Creatinine Ratio 31.3 (12.0-20.0); Calcium, Blood 8.2 mg/dL (8.5-10.1); Creatinine, Blood 1.79 mg/dL (0.60-1.20); Potassium, Blood 4.3 mmol/L (3.5-5.5)
--- NOTE | 2022-02-03 06:06 | NUR ---
shift summary pt rested well through the night. alert and oriented, able to make needs known. dev. delayed, cooperative with plan of care. tele reads afib 80-90's. sats >93% on bipap at night - 16/8 40%fio2. when awake, on airvo settings on v60 - 40l/40% fio2. sanchez in place, draining to gravity, kevin care performed. incont bm/bedpan - see i/o. no skin issues. vss. call light within reach, bed in lowest position, will continue to monitor.
--- NOTE | 2022-02-03 17:44 | NUR ---
ASSUMED CARE OF PT AT 0700. PT WORKED WITH PT/OT TODAY AND WAS ABLE TO GET OOB TO COMMODE AND RECLINER CHAIR ONE PERSON ASSIST WITH FWW. PT TOLERATED ACTIVITY WELL. VSS STABLE T/O SHIFT. PT HAS HAD FREQUENT LOOSE DARK GREEN BOWEL MOVEMENTS T/O SHIFT, DR SMITH NOTIFIED AND PT WILL HAVE STOOL SAMPLE SENT FOR R/O C-DIFF PER MD ORDERS. NO ACUTE EVENTS THIS SHIFT. WILL CONTINUE TO MONITOR AND GIVE REPORT TO ONCOMING SHIFT RN.
[2022-02-04 05:40] LABS: C DIFFICILE DNA NEGATIVE (Negative)
--- NOTE | 2022-02-04 05:50 | NUR ---
shift summary pt rested well through the night. alert and oriented - developementally delayed. cooperative with plan of care. tele reads afib - rate 80-100. sats >95% on 40l/40%fio2. wears bipap at night 16/8 40%. sanchez in place, adequate uop. multiple bm's, cdiff testing was negative. turns well in bed. one person assist to bedside commode. vss. no c/o pain. call light within reach, bed in lowest position. will continue to monitor.
--- NOTE | 2022-02-04 08:14 | NUR ---
Reinaldo is alert, oriented to person, place, following directions and carrying on simple conversation. He is cheerful and pleasant this morning. Tells me that he is waiting for someone to come and take the IV out and then draw blood. I explained that we can't draw blood from the IV, but that our excellent phlebotomists will come and find a vein to draw the blood from on one of his arms. He was agreeable to this. Able to wean his oxygen AirVo delivery from 40% to 35% at rest, still 40 l/min flow, and spo2 is holding steady at 93%. Lung sounds are diminished, with fine to moderately coarse crackles noted on inspiration, mostly lower lobes. The pt was encouraged to use his incentive spirometer, which he readily demonstrated, correctly.
[2022-02-04 08:27] LABS: BASOPHILS ABSOLUTE AUTO 0.03 K/mm3 (0.00-0.23); BASOPHILS PERCENT AUTO 0 % (0-2); EOSINOPHILS ABSOLUTE AUTO 0.05 K/mm3 (0.00-0.68); EOSINOPHILS PERCENT AUTO 0 % (0-6); Hematocrit 46.6 % (37.0-53.0); Hemoglobin 14.5 g/dL (13.5-17.5); IMMATURE GRAN PERCENT AUTO 2 % (0-1); LYMPHOCYTES ABSOLUTE AUTO 1.91 K/mm3 (0.84-5.20); LYMPHOCYTES PERCENT AUTO 16 % (21-46); MONOCYTES ABSOLUTE AUTO 0.89 K/mm3 (0.16-1.47); MONOCYTES PERCENT AUTO 7 % (4-13); Mean Corpuscular HGB 28.3 pg (26.0-34.0); Mean Corpuscular HGB Conc 31.1 g/dL (31.5-36.5); Mean Corpuscular Volume 91 fL (80-100); Mean Platelet Volume 10.1 fL (9.1-12.4); NEUTROPHILS ABSOLUTE AUTO 9.14 K/mm3 (1.96-9.15); NEUTROPHILS PERCENT AUTO 75 % (41-73); Platelet Count 182 K/mm3 (150-400); RDW Coefficient Variation 13.5 % (11.7-14.2); RDW Standard Deviation 45.6 fL (35.1-46.3); Red Blood Cell Count 5.12 M/mm3 (4.30-5.90); White Blood Cell Count 12.22 K/mm3 (4.00-11.30)
[2022-02-04 08:53] LABS: Bun/Creatinine Ratio 25.1 (12.0-20.0); Calcium, Blood 8.5 mg/dL (8.5-10.1); Creatinine, Blood 1.83 mg/dL (0.60-1.20); Potassium, Blood 3.6 mmol/L (3.5-5.5)
--- NOTE | 2022-02-04 17:13 | NUR ---
Reinaldo has been stable on oxygen delivery unchanged since this morning. Up frequently to bedside commode to void. He has been sitting up in a chair all day, occasionally demonstrating use of the incentive spirometer. Occasional dry sounding cough. No bowel movements today, appetite and fluid intake good. No complaints. Concerns voiced about when he is going home, concerned that his sister will be able to come and see him. The pt spoke with his sister on the phone (Hollie) who lives in [place]. She expressed concern about his living condition; states that he lives with his mother who has severe dementia and a 24 hour caregiver, but the caregiver does not know Reinaldo. Hollie states that she was very involved with his discharge from [facility] some years ago and concerned that his living situation was not very good at the time; she says that now it is worse. She does not think that the pt is capable of living independently. She is going to contact some commmmunity members in [place] who know the patient and his family, to see what kind of assistance that they might be able to provide. Requested a call from the care management to discuss safe plan for discharge.
[2022-02-05 03:59] LABS: BASOPHILS ABSOLUTE AUTO 0.02 K/mm3 (0.00-0.23); BASOPHILS PERCENT AUTO 0 % (0-2); EOSINOPHILS ABSOLUTE AUTO 0.06 K/mm3 (0.00-0.68); EOSINOPHILS PERCENT AUTO 1 % (0-6); Hematocrit 45.8 % (37.0-53.0); Hemoglobin 14.2 g/dL (13.5-17.5); IMMATURE GRAN ABSOLUTE AUTO 0.15 K/mm3 (0.00-0.10); IMMATURE GRAN PERCENT AUTO 1 % (0-1); LYMPHOCYTES ABSOLUTE AUTO 1.98 K/mm3 (0.84-5.20); LYMPHOCYTES PERCENT AUTO 15 % (21-46); MONOCYTES ABSOLUTE AUTO 0.96 K/mm3 (0.16-1.47); MONOCYTES PERCENT AUTO 7 % (4-13); Mean Corpuscular HGB 28.4 pg (26.0-34.0); Mean Corpuscular Volume 92 fL (80-100); Mean Platelet Volume 10.3 fL (9.1-12.4); NEUTROPHILS ABSOLUTE AUTO 9.93 K/mm3 (1.96-9.15); NEUTROPHILS PERCENT AUTO 76 % (41-73); Platelet Count 183 K/mm3 (150-400); RDW Coefficient Variation 13.4 % (11.7-14.2); RDW Standard Deviation 45.4 fL (35.1-46.3)
[2022-02-05 04:22] LABS: Calcium, Blood 8.8 mg/dL (8.5-10.1); Creatinine, Blood 1.77 mg/dL (0.60-1.20); Potassium, Blood 4.1 mmol/L (3.5-5.5)
--- NOTE | 2022-02-05 06:24 | NUR ---
SHIFT SUMMARY PATIENT ALERT AND ORIENTED, SEEMS TO BE AT HIS BASELINE. COOPERATIVE WITH CARE. VSS. PATIENT ON 6L NC THIS SHIFT WITH O2 SAT LOW TO MID 90s. PATIENT DOES DESAT INTO HIGH 80s WITH EXERTION BUT QUICKLY RECOVERS. PATIENT SAT UP IN CHAIR THIS SHIFT. FREQUENT USE OF BEDSIDE COMMODE. EXCELLENT URINE OUTPUT SINCE VILLANUEVA WAS DCd. NO OTHER ACUTE CHANGES THIS SHIFT. WILL REPORT TO DAY SHIFT RN.
--- NOTE | 2022-02-05 07:33 | NUR ---
Reinaldo is on 5 l/min O2 by n.c. He was able to walk into the bathroom with the walker, without any assistance other than verbal cues. Spo2 90-94% with the activity, while carrying on conversation. He says that he would like to try to take a shower today and shave in the bathroom.
--- NOTE | 2022-02-05 09:06 | NUR ---
Ambulatory to the bathroom, to void. Heart rate 106-114 at rest while in recliner. Heart rate increased to 124-153 while walking from bathroom back to recliner chair, standby assistance. Mild dyspnea while doing the activity. Still has an occasional moist sounding cough. Oxygen delivery is 5 l/min, 92% spo2
--- NOTE | 2022-02-05 09:08 | NUR ---
Now at rest spo2 91% while talking with the doctor.
--- NOTE | 2022-02-05 11:10 | NUR ---
Assisted to walk to bathroom with walker to void. Tolerating the activity with some mild dyspnea noted.
--- NOTE | 2022-02-05 14:40 | NUR ---
Pt assisted to shower chair in the bathroom for shower. He was able to have a shower with minimal assistance and said that his breathing felt fine. Following the shower his sister Norma arrived and is visiting with him in the room right now. Upon ambulation back to the chair, his SPO2 measured 91%. O2 delivery is 5 l/min at this time.
--- NOTE | 2022-02-05 17:51 | NUR ---
Pedro was cheerful and conversant this afternoon. Appetite still very good, voiding frequently by walking into bathroom to use the toilet. No bowel movement today. He talked with his sister Norma who came to visit, and with Hollie by telephone. He is eager to attempt to wean down his oxygen. Oxygen was decreased to 2.5 l//min (his stated dose at home) at his request to assess while I stayed in the room with him for several minutes. He tolerated 2.5 l/min delivery while talking with me, and while eating dinner, with spo2 hovering 89-91%. After dinner this dropped to 86-87% and the oxygen was increased to 4 l/min. During activity walking to the bathroom he requires 5 l/min to keep spo2 at least 89%.
--- NOTE | 2022-02-05 19:41 | NUR ---
ASSUMPTION OF CARE PATIENT ALERT AND ORIENTED, SITTING UP IN CHAIR. 4L O2 IN PLACE WITH O2 SAT ABOVE 90%. PATIENT VOICING CONCERNS ABOUT DISCHARGE. PATIENT STATES "I AM GETTING BETTER WHY CAN'T I JUST GO HOME?". PATIENT THINKS HE IS TAKING UP A BED WHEN HE IS GETTING BETTER. PATIENT STATES HE WOULD LIKE TO GO TO REHAB WHERE HE CAN GET BETTER INSTEAD OF STAYING IN THE HOSPITAL OR GET A HOSPITAL BED FOR HIS HOME. PATIENT EDUCATED ON PLAN OF CARE AND PLANS FOR MONDAY WITH OT EVALUATION AND WHEN DISHCARGE PLANNERS ARE AVAILABLE. PATIENT STATES HE IS FEELING DEFEATED AND IS BECOMING TEARFUL DURING CONVERSATION ABOUT PLANS OF CARE. WILL CONTINUE TO EDUCATE PATIENT ON PLAN OF CARE NEEDED.
[2022-02-06 04:39] LABS: Bun/Creatinine Ratio 22.5 (12.0-20.0); Calcium, Blood 8.3 mg/dL (8.5-10.1); Creatinine, Blood 1.78 mg/dL (0.60-1.20); Potassium, Blood 4.1 mmol/L (3.5-5.5)
--- NOTE | 2022-02-06 05:38 | NUR ---
SHIFT SUMMARY PATIENT ALERT AND ORIENTED, AT HIS BASELINE. VSS. PATIENT ON 4L NC T/O NIGHT WITH O2 SAT MAINTAINING LOW TO MID 90s. PATIENT DOES DESAT WITH EXERTION BUT IS ABLE TO RECOVER QUICKLY. SAT UP IN CHAIR THIS SHIFT, USING WALKER TO USE RESTROOM. EXCELLENT URINE OUTPUT. ABLE TO MAKE NEEDS KNOWN TO STAFF, USING CALL LIGHT APPROPRIATLEY. PATIENT REPORTS FEELING DEFEATED AT START OF SHIFT BUT HIS SPIRITS SEEM TO BE BETTER THIS MORNING. SEE PREVIOUS NOTE. NO OTHER ACUTE CHANGES THIS SHIFT. WILL REPORT TO DAY SHIFT RN.
--- NOTE | 2022-02-06 17:53 | NUR ---
Shift Summary Pt A&Ox4; slow to respond. Pt up in chair for majoirty of shift. Up to bathroom with 1 person assist with walker. Pt denies pain, chest pain, nausea, dizziness and numb/tingling. Pt sob with exertion, Spo2 dropped to 80's this am on 4l o2 via nc, titrated to 5l o2 via nc spo2 >90% for remainder of shift. Tele afib 100's for majority of shift, bp stable. Pt up to bathroom multiple time t/o shift, this am pt refusing to allow assistance with wiping, this evening pt accepting help. Other vss, no other acute changes noted. Will continue to monitor until report given to oncoming rn.
--- NOTE | 2022-02-07 01:51 | NUR ---
SHIFT SUMMARY: PT IS ALERT, ORIENTED TO SELF AND LOCATION. DEVELOPMENTAL DELAY UNCHANGED FROM PREVIOUS SHIFT. PT UP AMBULATING IN HALLWAY WITH KYLE WALLISA ON 5LPM. O2 SATS REMAIN AT 94% WHEN UP AMBULATING, TOLERATES WELL. PT REQUESTS TO SLEEP IN CHAIR. ASSISTED PT TO PLACE CPAP. CALL LIGHT IN REACH.
--- NOTE | 2022-02-07 02:09 | NUR ---
PT UP TO BATHROOM WITH STAND BY ASSIST. PT FORGOT TO USE CALL LIGHT BEFORE GETTING UP, HAD PARTIALLY INCONTINENT VOID. RETURNED TO CHAIR. REPLACED CPAP. ENCOURAGED PT TO CALL WHEN NEEDING TO GET UP. CALL LIGHT IN REACH.
--- NOTE | 2022-02-07 06:43 | NUR ---
PT RESTING IN CHAIR, APPEARS TO BE SLEEPING. SAFETY MEASURES IN PLACE.
--- NOTE | 2022-02-07 17:00 | NUR ---
SHIFT SUMMARY PT A&Ox3; SLOW TO RESPOND, CALM AND COOPERATIVE WITH CARE. PT UP IN CHAIR FOR ENTIRE SHIFT. UP WITH SBA TO BATHROOM, ON WALK IN HALLS WITH PHYSICAL THERAPY. PT DENIES PAIN, CHEST PAIN/PRESSURE, NAUSEA AND DIZZINESS. SOB WITH EXERTION, PT ON 5L O2 VIA NC THIS AM, TITRATED TO 3L O2 VIA NC THIS EVENING; LS CLEAR, DIM TO BASES. TELE AFIB 80-100'S; OCCASIONALLY PACED BEATS; BP STABLE. OTHER VSS. NO OTHER ACUTE CHANGES NOTED. WILL CONTINUE TO MONITOR UNTIL REPORT GIVEN TO ONCOMING RN.
--- NOTE | 2022-02-07 19:46 | NUR ---
PT IS A&OX3 WITH DEVELOPMENTAL DELAY. PT UP TO BATHROOM WITH STAND BY ASSIST. GAIT SLOW BUT STEADY. PT VOIDED IN TOILET, UNABLE TO MEASURE. RETURNED TO CHAIR. BLANKET PROVIDED AT PT REQUEST. DENIES FURTHER NEEDS AT THIS TIME. SAFETY MEASURES IN PLACE.
--- NOTE | 2022-02-08 06:00 | NUR ---
PT UP TO BATHROOM WITH STAND BY ASSIST. PT AGREEING TO WEAR CPAP WHEN TRYING TO SLEEP SITTING UP IN CHAIR. CALL LIGHT IN REACH.
[2022-02-08] MEDS ORDERED: Voltaren100 GM TOP (10:46)
[2022-02-08] MEDS ORDERED: TIOT18 INH (10:47)
[2022-02-08] MEDS ORDERED: DILT120 PO (10:49)
[2022-02-08] MEDS ORDERED: DIGOX125 MC1 PO (10:50)
--- NOTE | 2022-02-08 14:14 | NUR ---
DISCHARGE SUMMARY PT EXPRESSING THE DESIRE TO GO HOME THIS AM AT SHIFT CHANGE. PT A&Ox3; SLOW TO RESPOND, COOPERATIVE WITH CARE. PT UP IN CHAIR, SBA WITH WALKER TO BATHROOM. ENCOURAGED PT TP ELEVATED BLE, PT DENIES NEEDS TO ELEVATE AT THIS TIME. PT DENIES PAIN, CHEST PAIN/PRESSURE, SOB, NAUSEA AND DIZZINESS T/O SHIFT. HOME O2 EVAL COMPLETED; 4L O2 VIA NC AT ALL TIMES, SPO2 >90%. NO OTHER ACUTE CHAGNES NOTED. PT AND FAMILY EDUCATED ON DISCHARGE INSTRUCTIONS, FOLLOW UP APPOINTMENT, PRESCRIPTIONS AND O2 THERAPY AND THE IMPORTANCE OF WEARING CPAP AT NIGHT. PRESCRIPTIONS CALLED TO [facility] IN [place]. BROTHER ZOILA AT BEDSIDE, PT LEFT ROOM VIA WHEELCHAIR AT APPROX 1405.
--- NOTE | 2022-02-09 11:33 | NUR ---
Received referral from nurse nurse wound care (Elena Maciel) on 02/08/2022. Patient discharged 02/08/2022 with orders for home health and elected [facility]. Contacted patient's sister (Doug) today- 02/09/2022 at number provided in chart to further discuss the above. Patient's sister is agreeable to the above, however, she is very tangential and upset that patient was not sent to a "[place]". Discussed with patient's sister that at the time of discharge patient had been working with therapy services who recommended home with home health and that patient likely didn't need the level of care that a jail facility. Further discussion with patient's sister determined that she is likely referring to adult foster care and/or assisted living facilities. Discussed with patient's sister the need to establish patient with Medicaid in order to get caregivers and/or help with placement in an adult foster prison or assisted living facility. Provided number to local screening line at [facility]. Discussed homebound status definition with patient's sister. Patient's sister verbalized understanding. Discussed what home health is vs what it is not (in home caregivers/housekeeping). Patient's sister verbalized understanding. Discussed the next steps in the process of an initial assessment to determine frequency of visits. Again patient's sister verbalized understanding. Offered a chance for patient's sister to ask questions regarding the above of which there were none. Gathered all supporting documentation for referral (face sheet, face to face, med list, H&P, discharge summary, and most recent PT assessment) and sent to [facility] for review. No further interventions required. Caridad Stinson Referral Liaison
== END 2022-02-08 14:05 | disposition home health service (06) | DRG 870 ==
LOC: ER 06:03 → ICUW 08:50 → PCU 08:50 → ICUE 08:50 → PCU 02-02 16:47
PROVIDERS: Internal Medicine; Internal Medicine Critical Care Medicine; Student in an Organized Health Care Education/Training Program; ADMIT Internal Medicine
PROC: 5A1955Z Respiratory Ventilation, Greater than 96 Consecutive Hours (ICD-10-PCS; 2022-01-26)
PROC: 3E03329 Introduction of Other Anti-infective into Peripheral Vein, Percutaneous Approach (ICD-10-PCS; principal; 2022-01-27)
PROC: 0BH18EZ Insertion of Endotracheal Airway into Trachea, Via Natural or Artificial Opening Endoscopic (ICD-10-PCS; 2022-01-27)
PROC: 5A2204Z Restoration of Cardiac Rhythm, Single (ICD-10-PCS; 2022-01-27)
PROC: 3E033XZ Introduction of Vasopressor into Peripheral Vein, Percutaneous Approach (ICD-10-PCS; 2022-01-27)
PROC: 02HV33Z Insertion of Infusion Device into Superior Vena Cava, Percutaneous Approach (ICD-10-PCS; 2022-01-27)
PROC: 5A09557 Assistance with Respiratory Ventilation, Greater than 96 Consecutive Hours, Continuous Positive Airway Pressure (ICD-10-PCS; 2022-01-31)
DX: A41.89 Other specified sepsis (principal); J10.01 Influenza due to other identified influenza virus with the same other identified influenza virus pneumonia; R65.21 Severe sepsis with septic shock; J96.21 Acute and chronic respiratory failure with hypoxia; J96.22 Acute and chronic respiratory failure with hypercapnia; G92.8 Other toxic encephalopathy; J44.0 Chronic obstructive pulmonary disease with (acute) lower respiratory infection; J44.1 Chronic obstructive pulmonary disease with (acute) exacerbation; N17.9 Acute kidney failure, unspecified; Z68.43 Body mass index [BMI] 50.0-59.9, adult; I48.20 Chronic atrial fibrillation, unspecified; E87.1 Hypo-osmolality and hyponatremia; E87.0 Hyperosmolality and hypernatremia; Z20.822 Contact with and (suspected) exposure to COVID-19; K21.9 Gastro-esophageal reflux disease without esophagitis; E87.5 Hyperkalemia; N18.30 Chronic kidney disease, stage 3 unspecified; E11.22 Type 2 diabetes mellitus with diabetic chronic kidney disease; E78.00 Pure hypercholesterolemia, unspecified; E66.01 Morbid (severe) obesity due to excess calories; G47.33 Obstructive sleep apnea (adult) (pediatric); M10.9 Gout, unspecified; Z94.7 Corneal transplant status; Z95.0 Presence of cardiac pacemaker; Z99.81 Dependence on supplemental oxygen; Z88.0 Allergy status to penicillin; Z88.8 Allergy status to other drugs, medicaments and biological substances; Z79.01 Long term (current) use of anticoagulants; Z79.4 Long term (current) use of insulin; Z79.899 Other long term (current) drug therapy
CPT/HCPCS: 0241U; 31500; 36415; 36556; 36600; 51702; 70450; 71045; 80048; 80053; 80162; 81001; 82330; 82803; 82947; 83605; 83735; 83880; 84100; 84132; 84145; 84484; 85025; 85610; 85730; 87040; 87070; 87086; 87205; 87493; 92960; 93005; 93010; 93306; 94002; 94003; 94640; 94644; 94660; 94664; 94760; 94761; 94762; 96365; 96366; 96368; 96375; 97110; 97116; 97129; 97130; 97162; 97166; 97530; 97535; 99285-25; A9270; C1751; C8929; C9113; J0171; J0282; J0456; J0610; J0696; J1644; J1650; J1815; J1940; J2543; J2704; J2920; J2930; J3475; J7030; J7050; J7060; J7070; J7512; Q9957